=== PATIENT | male | born 1940 | race Caucasian/White ===

== ENCOUNTER 2018-02-15 20:45 | Observation (INO) ==
--- NOTE | 2018-02-15 21:24 | ED ---
HPI General Chief complaint: Chest Pain Stated complaint: cardiac Time Seen by Provider: 02/15/18 21:01 Source: patient Mode of arrival: ambulatory Limitations: no limitations History of Present Illness HPI narrative: 77yo M with PMH of CAD s/p stents x6, double bypass here with c/ o sudden onset nausea and diaphoresis while sitting at the restaurant today. Said that was exactly how his previous heart attacks presented. Said he got up and starting walking and appeared like he was going to fall so son sat him in a chair and he was unresponsive for a few minutes. Had some sob. Denies any fever, chest pain, vomiting, abdominal pain, focal weakness or numbness. Related Data Home Medications Medication Instructions Recorded Confirmed Ca-D3-mag kp-qlsc-qmw-emilia-bor 1,200 mg PO DAILY 02/15/18 02/15/18 [Calcium 600-D3 Plus] albuterol sulfate [ProAir HFA] 2 puff INHALATION Q4-6H PRN 02/15/18 02/15/18 alpha lipoic acid 250 mg PO DAILY 02/15/18 02/15/18 atorvastatin 80 mg PO QPM 02/15/18 02/15/18 calcium carbonate [Calcium 600] 1,200 mg PO DAILY 02/15/18 02/15/18 cholecalciferol (vitamin D3) 5,000 unit PO DAILY 02/15/18 02/15/18 [Vitamin D3] clopidogrel 75 mg PO DAILY 02/15/18 02/15/18 folic acid 0.8 mg PO DAILY 02/15/18 02/15/18 ibandronate 150 mg PO QMONTH 02/15/18 02/15/18 levothyroxine 150 mcg PO DAILY 02/15/18 02/15/18 melatonin 5 mg PO HS 02/15/18 02/15/18 selenium 200 mcg PO DAILY 02/15/18 02/15/18 testosterone 1 packet TRANSDERMAL DAILY 02/15/18 02/15/18 [id number] 200 mg PO DAILY 02/15/18 02/15/18 vitamin Q51-wuzhq acid 3,000 mcg SUBLINGUAL DAILY 02/15/18 02/15/18 Previous Rx's Medication Instructions Recorded aspirin 81 mg PO DAILY #30 tab 02/16/18 Allergies Allergy/AdvReac Type Severity Reaction Status Date / Time No Known Allergies Allergy Uncoded 10/19/16 14:27 Review of Systems ROS: all other systems reviewed are negative [facility] Medical History Medical History COPD (chronic obstructive pulmonary disease) (Acute) Coronary artery disease (Acute) Heart attack (Acute) Hydrocephalus (Acute) Hyperlipidemia (Acute) Hypothyroid (Acute) Surgical History Surgical History History of heart artery stent (Acute) S/P CRIMINAL RESEARCH SPECIALIST shunt (Acute) Status post coronary artery bypass graft (Acute) Status post knee surgery (Acute) Family History Family History Other Coronary artery disease Social History Social History Substance History: No History of Abuse Smoking Status: Former smoker How Often Do You Have a Drink Containing Alcohol: Monthly or less Recent Travel in [facility] within the Last 8 Weeks: No Recent Out of Country Travel within the Last 8 Weeks: No Immunization History Tetanus Immunization: >5 Years Exam Narrative Exam Narrative: GENERAL: 77yo M in mild distress. SKIN: Focused skin assessment warm/dry. HEAD: Atraumatic. Normocephalic. EYES: Pupils equal and round at 3mm. EOMI. ENT: No nasal bleeding or discharge. Mucous membranes pink and moist. NECK: Trachea midline. No JVD. CARDIOVASCULAR: Regular rate and rhythm. No murmur appreciated. RESPIRATORY: No accessory muscle use. Clear to auscultation. Breath sounds equal bilaterally. GASTROINTESTINAL: Abdomen soft, non-tender, nondistended. MUSCULOSKELETAL: No obvious deformities. No clubbing. No cyanosis. No edema. NEUROLOGICAL: Awake and alert. No obvious cranial nerve deficits. Motor grossly within normal limits in all extremities. Sensation intact and equal. Normal speech. PSYCHIATRIC: Appropriate mood and affect; insight and judgment normal. Course Initial Documented Vital Signs Temperature 98.6 F 02/15/18 21:04 Pulse Rate 79 02/15/18 21:04 Respiratory Rate 16 02/15/18 21:04 Blood Pressure 138/75 02/15/18 21:04 Pulse Oximetry 100 02/15/18 21:04 Last Documented Vital Signs Temperature 97.7 F 02/17/18 08:00 Pulse Rate 57 L 02/17/18 08:00 Respiratory Rate 18 02/17/18 08:00 Blood Pressure 132/82 02/17/18 08:00 Pulse Oximetry 99 02/17/18 08:00 Medical Decision Making MDM Narrative Medical decision making narrative: 77yo M here with c/o diaphoresis and nausea today and said this is how his heart attacks are like. Pt also had episode of syncope. Labs reviewed, no leukocytosis. H/H 13.4/37.9. BUN elevated at 19. BUN/creatinine 2 to 1 so likely dehydrated. CXR showed no acute findings. Medical Screen Exam Complete: Yes Emergency Medical Condition: Yes Differential Diagnosis Differential Diagnosis: Syncope vs. hypoglycemia vs. dehydration vs. aortic stenosis vs. ACS Lab Data Result diagrams: 02/15/18 21:26 02/15/18 21:26 Lab Results 02/15/18 02/15/18 02/15/18 Range/Units 21:18 21:26 21:26 WBC 6.6 (4.0-11.0) th/mm3 RBC 4.22 L (4.50-5.90) mil/mm3 Hgb 13.4 (13.0-17.0) gm/dL Hct 37.9 L (39.0-51.0) % MCV 89.7 (80.0-100.0) fL MCH 31.6 (27.0-34.0) pg MCHC 35.2 (32.0-36.0) % RDW 12.9 (11.6-17.2) % Plt Count 200 (150-450) th/mm3 MPV 7.8 (7.0-11.0) fL Neut % (Auto) 63.2 (16.0-70.0) % Lymph % (Auto) 20.3 (9.0-44.0) % [place] % (Auto) 11.9 H (0.0-8.0) % Eos % (Auto) 3.9 (0.0-4.0) % Baso % (Auto) 0.7 (0.0-2.0) % Neut # (Auto) 4.2 (1.8-7.7) th/mm3 Lymph # (Auto) 1.3 (1.0-4.8) th/mm3 [place] # (Auto) 0.8 (0.0-0.9) th/mm3 Eos # (Auto) 0.3 (0.0-0.4) th/mm3 Baso # (Auto) 0.0 (0.0-0.2) th/mm3 WBC Differential . Differential Comment Auto diff final PT 10.6 (9.8-11.6) sec INR 1.0 Ratio APTT 24.3 (23.4-31.7) sec Sodium (136-145) meq/L Potassium (3.5-5.1) meq/L Chloride (98-107) meq/L Carbon Dioxide (21.0-32.0) meq/L Anion Gap (5-15) meq/L BUN (7-18) mg/dL Creatinine (0.60-1.30) mg/dL Estimated GFR (>89) mL/min POC Glucose 86 (68-110) mg/dl Random Glucose (74-106) mg/dL Calcium (8.5-10.1) mg/dL Magnesium (1.5-2.5) mg/dL Total Creatine Kinase (39-308) U/L Troponin I (0.02-0.05) ng/mL 02/15/18 02/16/18 02/16/18 Range/Units 21:26 04:48 10:26 WBC (4.0-11.0) th/mm3 RBC (4.50-5.90) mil/mm3 Hgb (13.0-17.0) gm/dL Hct (39.0-51.0) % MCV (80.0-100.0) fL MCH (27.0-34.0) pg MCHC (32.0-36.0) % RDW (11.6-17.2) % Plt Count (150-450) th/mm3 MPV (7.0-11.0) fL Neut % (Auto) (16.0-70.0) % Lymph % (Auto) (9.0-44.0) % [place] % (Auto) (0.0-8.0) % Eos % (Auto) (0.0-4.0) % Baso % (Auto) (0.0-2.0) % Neut # (Auto) (1.8-7.7) th/mm3 Lymph # (Auto) (1.0-4.8) th/mm3 [place] # (Auto) (0.0-0.9) th/mm3 Eos # (Auto) (0.0-0.4) th/mm3 Baso # (Auto) (0.0-0.2) th/mm3 WBC Differential Differential Comment PT (9.8-11.6) sec INR Ratio APTT (23.4-31.7) sec Sodium 134 L (136-145) meq/L Potassium 3.9 (3.5-5.1) meq/L Chloride 100 (98-107) meq/L Carbon Dioxide 28.3 (21.0-32.0) meq/L Anion Gap 6 (5-15) meq/L BUN 19 H (7-18) mg/dL Creatinine 0.95 (0.60-1.30) mg/dL Estimated GFR 77 L (>89) mL/min POC Glucose (68-110) mg/dl Random Glucose 80 (74-106) mg/dL Calcium 8.8 (8.5-10.1) mg/dL Magnesium 2.0 (1.5-2.5) mg/dL Total Creatine Kinase 90 93 (39-308) U/L Troponin I 0.02 0.03 0.02 (0.02-0.05) ng/mL Imaging Data Radiologist's impression: Chest X-Ray 02/15/18 21:19 CONCLUSION: No acute findings. Stable pleural and parenchymal scarring at the left base compared with 2011. Stable upper right healed rib and clavicle fracture. Carotid Doppler Study 02/16/18 00:00 CONCLUSION: 1. Right Internal Carotid Artery: Findings indicate <50% stenosis. 2. Left Internal Carotid Artery: Findings indicate <50% stenosis. Head CT 02/16/18 00:00 CONCLUSION: 1. No acute intracranial abnormality is identified. 2. A right frontal CRIMINAL RESEARCH SPECIALIST shunt is present and the ventricle size is within normal limits. . Myocardial Perfusion Scan Nuc Med 02/16/18 09:20 CONCLUSION: Probably normal exam ECG Data EKG Prior to Arrival: No Attestation: I personally reviewed and interpreted this ECG as follows: Interpretation: NSR 73bpm. Normal axis. NC interval 159ms. Q wave III. No significant ST elevation or depression. Discharge Plan Discharge Disposition Patient Disposition: ED Admit(ED Internal Use Only) Discharge Condition Condition: Stable Discharge Order Discharge Orders: Discharge Order (Routine); Ordered 02/17/18 Ordered By: Umesh Haney Cardiology Clear for Discharge (Routine); Ordered 02/17/18 Ordered By: Govind Lopez ED Use Only Admit Order (Routine); Ordered 02/15/18 Ordered By: Monserrat Gardner Discharge Details Discharge Comment: dc when cleared by cards Diagnosis: Syncope Physicians Team ED Provider: Gardner,Monserrat Primary Care Provider: UNKNOWN, Attending Provider: Umesh Haney Other Providers: Govind Lopez Status ED Status: Left Department Discharge Information Discharge Date/Time: 02/16/18 05:17
--- NOTE | 2018-02-15 21:41 | XR ---
EXAM DATE: 02/15/2018 9:38 PM EST AGE/SEX: 77 years / Male INDICATIONS: Chest pain CLINICAL DATA: This is the patient's initial encounter. Patient reports that signs and symptoms have been present for 1 day and indicates a pain score of 0/10. MEDICAL/SURGICAL HISTORY: Cardiovascular disease. . cardiac stents COMPARISON: [facility] [place], CHEST PA & LAT, 04/22/2011. . FINDINGS: Right-sided shunt tubing present. Stable mild elevated left hemidiaphragm with left basilar scarring compared with 2012. Remote healed upper right rib and right clavicle fractures. No new infiltrate or effusion. No pneumothorax. CONCLUSION: No acute findings. Stable pleural and parenchymal scarring at the left base compared with 2012. Stabl e upper right healed rib and clavicle fracture. Electronically signed by: eRnny Salinas MD Board Certified Radiologist 02/15/2018 9:40 PM EST
[2018-02-15 21:43] LABS: Baso % (Auto) 0.7 % (0.0-2.0); Eos # (Auto) 0.3 th/mm3 (0.0-0.4); Eos % (Auto) 3.9 % (0.0-4.0); Hematocrit 37.9 % (39.0-51.0); Hemoglobin 13.4 gm/dL (13.0-17.0); Lymph # (Auto) 1.3 th/mm3 (1.0-4.8); Lymph % (Auto) 20.3 % (9.0-44.0); Mean Corpuscular HGB Conc 35.2 % (32.0-36.0); Mean Corpuscular Hemoglobin 31.6 pg (27.0-34.0); Mean Corpuscular Volume 89.7 fL (80.0-100.0); Mean Platelet Volume 7.8 fL (7.0-11.0); Mono # (Auto) 0.8 th/mm3 (0.0-0.9); Mono % (Auto) 11.9 % (0.0-8.0); Neut # (Auto) 4.2 th/mm3 (1.8-7.7); Neut % (Auto) 63.2 % (16.0-70.0); Platelet Count 200 th/mm3 (150-450); Red Blood Count 4.22 mil/mm3 (4.50-5.90); Red Cell Distribution Width 12.9 % (11.6-17.2); White Blood Count 6.6 th/mm3 (4.0-11.0)
[2018-02-15 21:54] LABS: Activated Partial Thrombo Time 24.3 sec (23.4-31.7); Prothrombin Time 10.6 sec (9.8-11.6)
[2018-02-15 22:06] LABS: Calcium 8.8 mg/dL (8.5-10.1); Carbon Dioxide 28.3 meq/L (21.0-32.0); Potassium 3.9 meq/L (3.5-5.1)
[2018-02-15 22:09] LABS: Troponin I 0.02 ng/mL (0.02-0.05)
--- NOTE | 2018-02-16 00:58 | P.HP ---
History of Present Illness Service: [facility] Primary Care Physician: UNKNOWN History of Present Illness: 77-year-old male with a past medical history significant for coronary artery disease status post CABG x2 and stenting x6, hyperlipidemia, COPD, hypothyroidism and hydrocephalus status post SALES SUPPORT ADMINISTRATOR shunt presents to the emergency department for the evaluation of a diaphoretic episode with accompanying syncope. The patient has a history of multiple MIs and reports his symptoms were similar to previous. He states he had just completed dinner when he became diaphoretic with slight nausea around 7 PM. He reports he then got up and was walking when he lost consciousness. He denies any associated dizziness or lightheadedness. Event was witnessed by the patient's . He denies any head trauma. No associated shortness of breath. He reports mild nausea without emesis. No focal neurologic deficits. No fever/chills. Review of Systems All other systems reviewed negative except as stated in HPI [facility] - History History Provided By: Patient - Medical History Medical History: Medical History (Last Updated 02/16/18 @ 00:52 by Malika Beaulieu MD) COPD (chronic obstructive pulmonary disease) Coronary artery disease Heart attack Hydrocephalus Hyperlipidemia Hypothyroid - Surgical History Surgical History: Surgical History (Last Updated 02/16/18 @ 00:53 by Malika Beaulieu MD) History of heart artery stent S/P SALES SUPPORT ADMINISTRATOR shunt Status post coronary artery bypass graft Status post knee surgery - Family History Family History: Family History (Last Updated 02/16/18 @ 00:53 by Malika Beaulieu MD) Other Coronary artery disease - Tobacco History Smoking Status: Former smoker - Alcohol History How Often Do You Have a Drink Containing Alcohol: Monthly or less - Substance Use History Substance History: No History of Abuse - Travel History Recent Travel in the [place] Within the Last 8 Weeks: No Recent Travel Out of the Country Within the Last 8 Weeks: No - Immunization History Tetanus Immunization: >5 Years Medications and Allergies Allergies Allergy/AdvReac Type Severity Reaction Status Date / Time No Known Allergies Allergy Uncoded 10/19/16 14:27 Home Medications Medication Instructions Recorded Confirmed Type Ca-D3-mag ei-wxxw-lna-emilia-bor 1,200 mg PO DAILY 02/15/18 02/15/18 History [Calcium 600-D3 Plus] albuterol sulfate [ProAir HFA] 2 puff INHALATION Q4-6H PRN 02/15/18 02/15/18 History alpha lipoic acid 250 mg PO DAILY 02/15/18 02/15/18 History atorvastatin 80 mg PO QPM 02/15/18 02/15/18 History calcium carbonate [Calcium 600] 1,200 mg PO DAILY 02/15/18 02/15/18 History cholecalciferol (vitamin D3) 5,000 unit PO DAILY 02/15/18 02/15/18 History [Vitamin D3] clopidogrel 75 mg PO DAILY 02/15/18 02/15/18 History folic acid 0.8 mg PO DAILY 02/15/18 02/15/18 History ibandronate 150 mg PO QMONTH 02/15/18 02/15/18 History levothyroxine 150 mcg PO DAILY 02/15/18 02/15/18 History melatonin 5 mg PO HS 02/15/18 02/15/18 History selenium 200 mcg PO DAILY 02/15/18 02/15/18 History tamsulosin 0.4 mg PO DAILY 02/15/18 02/15/18 History testosterone 1 packet TRANSDERMAL DAILY 02/15/18 02/15/18 History lefdezbnp-[id number]-ZW-qesajhdfbqk 200 mg PO DAILY 02/15/18 02/15/18 History vitamin Z34-tmyjy acid 3,000 mcg SUBLINGUAL DAILY 02/15/18 02/15/18 History Exam Vital signs: Vital Signs 02/15/18 21:04 02/15/18 21:29 Temperature 98.6 F Pulse Rate 79 79 Respiratory Rate 16 Blood Pressure 138/75 Pulse Oximetry 100 Intake & Output 02/15/18 02/15/18 02/16/18 06:59 18:59 06:59 Weight 67.132 kg Narrative: Gen.: No acute distress Head: Normocephalic. Atraumatic. EENT: Pupils equal round and reactive to light. Nose without drainage. Airway intact. Throat without injection. Cardiovascular: Regular rate and rhythm. No murmurs, rubs or gallops. Respiratory: Lungs clear to auscultation bilaterally. No wheezes or rhonchi. Abdomen: Soft, nontender, nondistended. No peritoneal signs. Musculoskeletal: No gross deformities. No edema. Skin: No obvious rashes or erythema. Neuro: Sensory and motor grossly intact. Cranial nerves II through XII grossly intact. Results - Labs CBC & Chem 7: 02/15/18 21:26 02/15/18 21:26 Labs: Laboratory Results - last 24 hr 02/15/18 02/15/18 02/15/18 21:18 21:26 21:26 WBC 6.6 RBC 4.22 L Hgb 13.4 Hct 37.9 L MCV 89.7 MCH 31.6 MCHC 35.2 RDW 12.9 Plt Count 200 MPV 7.8 Neut % (Auto) 63.2 Lymph % (Auto) 20.3 [place] % (Auto) 11.9 H Eos % (Auto) 3.9 Baso % (Auto) 0.7 Neut # (Auto) 4.2 Lymph # (Auto) 1.3 [place] # (Auto) 0.8 Eos # (Auto) 0.3 Baso # (Auto) 0.0 WBC Differential . Differential Comment Auto diff final PT 10.6 INR 1.0 APTT 24.3 Sodium Potassium Chloride Carbon Dioxide Anion Gap BUN Creatinine Estimated GFR POC Glucose 86 Random Glucose Calcium Magnesium Troponin I 02/15/18 21:26 WBC RBC Hgb Hct MCV MCH MCHC RDW Plt Count MPV Neut % (Auto) Lymph % (Auto) [place] % (Auto) Eos % (Auto) Baso % (Auto) Neut # (Auto) Lymph # (Auto) [place] # (Auto) Eos # (Auto) Baso # (Auto) WBC Differential Differential Comment PT INR APTT Sodium 134 L Potassium 3.9 Chloride 100 Carbon Dioxide 28.3 Anion Gap 6 BUN 19 H Creatinine 0.95 Estimated GFR 77 L POC Glucose Random Glucose 80 Calcium 8.8 Magnesium 2.0 Troponin I 0.02 - Imaging Impressions Chest X-Ray 02/15/18 21:19 CONCLUSION: No acute findings. Stable pleural and parenchymal scarring at the left base compared with 2012. Stable upper right healed rib and clavicle fracture. Caprini VTE Risk Assessment Caprini VTE Risk Assessment: Moderate/High Risk (score >= 2) Caprini Risk Assessment Model: Point Value = 1 Point Value = 2 Point Value = 3 Point Value = 5 Age 41-60 Minor surgery BMI > 25 kg/m2 Swollen legs Varicose veins or History of unexplained or recurrent spontaneous Oral contraceptives or hormone replacement Sepsis (< 1 month) Serious lung disease, including pneumonia (< 1 month) Abnormal pulmonary function Acute myocardial infarction Congestive heart failure (< 1 month) History of inflammatory bowel disease Medical patient at bed rest Age 61-74 Arthroscopic surgery Major open surgery (> 45 min) Laparoscopic surgery (> 45 min) Malignancy Confined to bed (> 72 hours) Immobilizing plaster cast Central venous access Age >= 75 History of VTE Family history of VTE Factor V Leiden Prothrombin [id number] Lupus anticoagulant Anticardiolipin antibodies Elevated serum homocysteine Heparin-induced thrombocytopenia Other congenital or acquired thrombophilia Stroke (< 1 month) Elective arthroplasty Hip, pelvis, or leg fracture Acute spinal cord injury (< 1 month) Prophylaxis Regimen: Total Risk Factor Score Risk Level Prophylaxis Regimen 0-1 Low Early ambulation 2 Moderate Order ONE of the following: *Sequential Compression Device (SCD) *Heparin 5000 units SQ BID 3-4 Higher Order ONE of the following medications: *Heparin 5000 units SQ TID *Enoxaparin/Lovenox 40 mg SQ daily (WT < 150 kg, CrCl > 30 mL/min) *Enoxaparin/Lovenox 30 mg SQ daily (WT < 150 kg, CrCl > 10-29 mL/min) *Enoxaparin/Lovenox 30 mg SQ BID (WT < 150 kg, CrCl > 30 mL/min) AND/OR *Sequential Compression Device (SCD) 5 or more Highest Order ONE of the following medications: *Heparin 5000 units SQ TID (Preferred with Epidurals) *Enoxaparin/Lovenox 40 mg SQ daily (WT < 150 kg, CrCl > 30 mL/min) *Enoxaparin/Lovenox 30 mg SQ daily (WT < 150 kg, CrCl > 10-29 mL/min) *Enoxaparin/Lovenox 30 mg SQ BID (WT < 150 kg, CrCl > 30 mL/min) AND *Sequential Compression Device (SCD) Assessment and Plan - Plan Assessment/plan: 1. Diaphoresis/chest pain/coronary artery disease Patient reports symptoms similar to previous [place] Now resolved Initial troponin negative EKG shows normal sinus rhythm with a pulse of [address] segment elevation or depression, personally reviewed Patient's hand tufter, Dr. Lopez consulted, appreciate assistance ACS rule out pending; serial troponins/EKGs 2. Syncope CT head pending Echo, carotid ultrasound pending Orthostatic vital signs pending 3. Hypothyroidism/hyperlipidemia Continue home medication 4. NPH Status post SALES SUPPORT ADMINISTRATOR shunting Head CT as above FEN N.p.o. NS at 100 cc/hour Electrolytes: Monitor and replete as needed Heparin
[2018-02-16] MEDS ORDERED: Sodium Chloride 0.9% 2 ML Flush PRN IV.FLUSH (01:00)
--- NOTE | 2018-02-16 02:00 | CT ---
EXAM DATE: 02/16/2018 1:37 AM EST AGE/SEX: 77 years / Male INDICATIONS: Syncope. CLINICAL DATA: This is the patient's initial encounter. Patient reports that signs and symptoms have been present for 1 day and indicates a pain score of 0/10. MEDICAL/SURGICAL HISTORY: Cardiovascular disease. Hydrocephalus. CABG. Coronary artery stent. PILOT BOAT CAPTAIN Shunt. RADIATION DOSE: 56.35 CTDI (mGy) COMPARISON: [facility] [place], CT BRAIN W/O CONTRAST, 06/30/2015. . TECHNIQUE: CT of the head without contrast. Using automated exposure control and adjustment of the mA and/or kV according to patient size, radiation dose was kept as low as reasonably achievable to ob tain optimal diagnostic quality images. DICOM format image data is available electronically for revi ew and comparison. FINDINGS: Cerebrum: There is a right frontal AP shunt in place with distal tip in the midline. Ventricles are slightly decreased in size from the prior examination and not dilated given the mild degree of cerebr al atrophy present. There is mild periventricular white matter low-attenuation. No midline shift, mas s lesion, hemorrhage or acute infarction. No extraaxial fluid collections are seen. Posterior Fossa: The cerebellum and brainstem demonstrate no acute abnormality. The 4th ventricle is midline. The cerebellopontine angle is within normal limits. Extracranial: The visualized sinuses are clear. Skull: The calvaria is intact. No skull fracture. CONCLUSION: 1. No acute intracranial abnormality is identified. 2. A right frontal PILOT BOAT CAPTAIN shunt is present and the ventricle size is within normal limits. . Electronically signed by: Lalit Goldman MD Board Certified Radiologist 02/16/2018 1:58 AM EST
[2018-02-16] MEDS: Sod Chloride 0.9% Inj 1,000 ML IV.CONT SCH ×3 (04:33→21:24)
[2018-02-16] MEDS: Melatonin 5 MG Tablet PO SCH ×2 (04:34→21:24)
[2018-02-16] MEDS: Heparin - SQ 10,000 UNITS/ML Vial SQ SCH ×3 (05:21→21:24)
[2018-02-16] MEDS: Levothyroxine 150 MCG Tablet PO SCH (05:22)
[2018-02-16 07:22] LABS: Troponin I 0.03 ng/mL (0.02-0.05)
--- NOTE | 2018-02-16 08:08 | ECG ---
Date Performed: 02/15/2018 Time Performed: 21:04:39 PTAGE: 77 years EKG: Sinus rhythm POSSIBLE INFERIOR MYOCARDIAL INFARCTION BORDERLINE ECG No significant change from prior electrocardi ogram. PREVIOUS TRACING : 04/21/2011 20.02 DOCTOR: Mahesh Rahman Interpretating Date/Time 02/16/2018 08:06:04
[2018-02-16] MEDS ORDERED: Regadenoson Inj 0.4 MG/5 ML Syringe IV.PUSH ONE (09:20)
--- NOTE | 2018-02-16 09:40 | P.PNIM ---
Subjective Interval history: Follow-up syncope. Patient had syncope during dinner. Only new medicine is Flomax which he took in the morning. Reported low BP per EMS but did not receive hydration. Negative orthostatics. Physical Exam Vital signs: Vital Signs 02/15/18 21:04 02/15/18 21:29 02/16/18 00:49 Temperature 98.6 F Pulse Rate 79 79 79 Respiratory Rate 16 17 Blood Pressure 138/75 111/65 Pulse Oximetry 100 97 02/16/18 03:25 Temperature Pulse Rate 77 Respiratory Rate 16 Blood Pressure 128/71 Pulse Oximetry 97 Intake & Output 02/15/18 02/16/18 02/16/18 18:59 06:59 18:59 Intake Total 0 / 0 Output Total 450 / 450 Balance -450 / -450 Weight 68.5 kg Intake: Oral 0 / 0 Output: Urine 450 / 450 Other: Date of Last Bowel Movement 02/15/18 Narrative: GENERAL: Well-developed and well-nourished in no distress SKIN: Warm and dry. CARDIOVASCULAR: Regular rate and rhythm. RESPIRATORY: No accessory muscle use. Clear to auscultation. Breath sounds equal bilaterally. GASTROINTESTINAL: Abdomen soft, non-tender, nondistended. MUSCULOSKELETAL: Extremities without clubbing, cyanosis, or edema. No obvious deformities. NEUROLOGICAL: Awake and alert. No obvious cranial nerve deficits. Motor grossly within normal limits. Five out of 5 muscle strength in the arms and legs. Normal speech. PSYCHIATRIC: Appropriate mood and affect; insight and judgment normal. Results Labs CBC & Chem 7: 02/15/18 21:26 02/15/18 21:26 Imaging Imaging: Impressions Chest X-Ray 02/15/18 21:19 CONCLUSION: No acute findings. Stable pleural and parenchymal scarring at the left base compared with 2012. Stable upper right healed rib and clavicle fracture. Head CT 02/16/18 00:00 CONCLUSION: 1. No acute intracranial abnormality is identified. 2. A right frontal POWERPLANT OPERATOR shunt is present and the ventricle size is within normal limits. . Assessment and Plan Plan 1. Diaphoresis/chest pain/coronary artery disease Patient reports symptoms similar to previous [place] Now resolved Initial troponin negative EKG shows normal sinus rhythm with a pulse of [address] segment elevation or depression, personally reviewed Patient's global engineering manager, Dr. Lopez consulted, appreciate assistance Patient ruling out for OK for Lexiscan today Aspirin, Plavix and Lipitor 2. Syncope, sounds like vasovagal agree with cardiology's assessment CT head without acute finding Echo unremarkable pending carotid ultrasound Orthostatic vital signs negative 3. Hypothyroidism/hyperlipidemia Continue home medication 4. NPH Status post POWERPLANT OPERATOR shunting Head CT as above FEN N.p.o. NS at 100 cc/hour Electrolytes: Monitor and replete as needed Heparin subcu for DVT prophylaxis If negative workup discharge home possibly tomorrow
--- NOTE | 2018-02-16 10:12 | US ---
EXAM DATE: 02/16/2018 10:05 AM EST AGE/SEX: 77 years / Male INDICATIONS: Syncope. CLINICAL DATA: This is the patient's initial encounter. Patient reports that signs and symptoms have been present for 1 day and indicates a pain score of 0/10. MEDICAL/SURGICAL HISTORY: Chronic obstructive pulmonary disease. Myocardial infarction. Hypot hyroidism. CAD. Hydrocephalus. Hyperlipidemia. Coronary artery stent. CABG. MAINSPRING FABRICATION SUPERVISOR Shunt. Knee surgery . COMPARISON: No prior exams available for comparison. VELOCITY PARAMETERS: ICA/CCA Ratio: Right 0.7 , Left 0.9 ICA: Right 89 cm/sec, Left 94 cm/sec CCA: Right 136 cm/sec, Left 102 cm/sec ECA: Right 94 cm/sec, Left 78 cm/sec Vertebral: Right 56 cm/sec antegrade, Left 18 cm/sec antegrade FINDINGS: Right Carotid: Moderate arteriosclerotic plaque is visualized.The waveforms are within normal limits . Left Carotid: Mild arteriosclerotic plaque is visualized. The waveforms are within normal limits. Other: None. CONCLUSION: 1. Right Internal Carotid Artery: Findings indicate <50% stenosis. 2. Left Internal Carotid Artery: Findings indicate <50% stenosis. Electronically signed by: Festus Whitney MD Board Certified Radiologist 02/16/2018 10:11 AM EST
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
[2018-02-16 11:23] LABS: Troponin I 0.02 ng/mL (0.02-0.05)
--- NOTE | 2018-02-16 12:00 | ECHRPT ---
Indication: SYNCOPE CONCLUSIONS Normal left ventricular size. Wall thickness is normal. The left ventricular systolic function is low normal with an estimated ejection fraction in the rang e of 50- 55%. [id number] mitral valve regurgitation. Aortic valve sclerosis is present. There is trace tricuspid valve regurgitation. BP: / HR: Rhythm: Sinus MEASUREMENTS (Male / Female) Normal Values Technical Quality:Fair 2D ECHO LV Diastolic Diameter PLAX 4.6 cm 4.2 - 5.9 / 3.9 - 5.3 cm LV Systolic Diameter PLAX 3.5 cm IVS Diastolic Thickness 0.7 cm 0.6 - 1.0 / 0.6 - 0.9 cm LVPW Diastolic Thickness 0.7 cm 0.6 - 1.0 / 0.6 - 0.9 cm LV Relative Wall Thickness 0.3 RV Internal Dim ED PLAX 1.5 cm LVOT Diameter 2.0 cm Aortic Root Diameter 3.0 cm M-MODE AV Cusp Separation MM 1.9 cm DOPPLER AV Peak Velocity 91.0 cm/s AV Peak Gradient 3.3 mmHg AV Mean Gradient 2.0 mmHg AV Velocity Time Integral 20.7 cm LVOT Peak Velocity 75.9 cm/s LVOT Peak Gradient 2.3 mmHg LVOT Velocity Time Integral 18.1 cm AV Area Cont Eq vti 2.7 cm AV Area Cont Eq pk 2.6 cm Mitral E Point Velocity 61.2 cm/s Mitral A Point Velocity 82.4 cm/s Mitral E to A Ratio 0.7 LV E' Lateral Velocity 9.8 cm/s Mitral E to LV E' Lateral Ratio 6.3 LV E' Septal Velocity 7.0 cm/s Mitral E to LV E' Septal Ratio 8.7 TR Peak Velocity 225.0 cm/s TR Peak Gradient 20.3 mmHg Right Atrial Pressure 10.0 mmHg Pulmonary Artery Systolic Pressu 30.3 mmHg Right Ventricular Systolic Press 30.3 mmHg PV Peak Velocity 60.2 cm/s PV Peak Gradient 1.4 mmHg FINDINGS LEFT VENTRICLE Normal left ventricular size. Wall thickness is normal. The left ventricular systolic function is low normal with an estimated ejection fraction in the rang e of 50- 55%. RIGHT VENTRICLE Normal right ventricular size and systolic function. LEFT ATRIUM The left atrial size is normal. RIGHT ATRIUM The right atrial size is normal. ATRIAL SEPTUM No atrial level shunt is demonstrated by color flow Doppler interrogation. AORTA The aortic root and proximal ascending aorta are normal in size on limited imaging. MITRAL VALVE [id number] mitral valve regurgitation. AORTIC VALVE Aortic valve sclerosis is present. TRICUSPID VALVE There is trace tricuspid valve regurgitation. PULMONARY VALVE No pulmonary valve regurgitation or stenosis. VESSELS The inferior vena cava is normal in size. PERICARDIUM No pericardial effusion. Dmitriy Lawton MD, FACC (Electronically Signed) Final Date:16 February 2018 11:59
--- NOTE | 2018-02-16 14:25 | ECG ---
Date Performed: 02/16/2018 Time Performed: 04:15:36 PTAGE: 77 years EKG: Sinus rhythm Normal ECG No significant change from prior electrocardiogram. PREVIOUS TRACING : 02/15/2018 21.04 DOCTOR: Mahesh Rahman Interpretating Date/Time 02/16/2018 14:24:29
--- NOTE | 2018-02-16 14:47 | NM ---
EXAM DATE: 02/16/2018 2:42 PM EST AGE/SEX: 77 years / Male INDICATIONS:Angina. Coronary artery disease CLINICAL DATA: This is the patient's initial encounter. Patient reports that signs and symptoms have been present for 1 day and indicates a pain score of 5/10. MEDICAL/SURGICAL HISTORY: Chronic obstructive pulmonary disease. Hypothyroidism. Myocardial i nfarction. CABG. Coronary artery stent. SUPERVISORY TRAINING SPECIALIST shunt. COMPARISON: No prior exams available for comparison. DOSE: 8.5 mCi Tc 99m Myoview at rest 26.4 mCi [id number] at stress 0.4 mg Lexiscan STRESS SYMPTOMS: None. EJECTION FRACTION: 67 % TECHNIQUE: The patient underwent pharmacologic stress with infusion of prescribed dose. Continuous ECG tracing was monitored during stress. Gated SPECT imaging was performed after stress and conventi onal SPECT imaging was performed at rest. The examination was performed on a SPECT/CT scanner, both attenuation and non-corrected datasets were reviewed. FINDINGS: Distribution: The maximum perfused segment at stress is in the anterolateral wall. Perfusion Study: Small focus of mildly diminished perfusion involving the lateral apical region wit hout evidence of redistribution. Gated Study: There are intact wall motion and wall thickening without hypokinetic or dyskinetic segm ents. The ejection fraction is calculated at 67%. RISK CATEGORY: Low (<1% Annual Mortality Rate) CONCLUSION: Probably normal exam Electronically signed by: Lalit Barrios MD Board Certified Radiologist 02/16/2018 2:45 PM EST
[2018-02-16] MEDS: Sodium Chloride 0.9% 2 ML Flush BID IV.FLUSH SCH ×2 (18:03→21:26)
[2018-02-17 00:15] VITALS: RESP 18
[2018-02-17] MEDS: Heparin - SQ 10,000 UNITS/ML Vial SQ SCH (05:05)
[2018-02-17] MEDS: Levothyroxine 150 MCG Tablet PO SCH (05:05)
[2018-02-17] MEDS: Sod Chloride 0.9% Inj 1,000 ML IV.CONT SCH ×2 (05:06→06:12)
[2018-02-17] MEDS: Sodium Chloride 0.9% 2 ML Flush BID IV.FLUSH SCH (08:42)
[2018-02-17 10:02] VITALS: BP 132/82; TEMP 97.7; O2SAT 99
[2018-02-17 10:04] VITALS: PULSE 57
--- NOTE | 2018-02-17 10:25 | P.PNIM ---
Subjective Interval history: Follow-up syncope. He is doing well no recurrence. Stress test negative. Physical Exam Vital signs: Vital Signs 02/16/18 12:00 02/16/18 16:00 02/16/18 18:30 Temperature 97.9 F 97.8 F Pulse Rate 71 92 H Respiratory Rate 18 18 Blood Pressure 128/71 154/77 H Pulse Oximetry 99 99 02/16/18 20:00 02/16/18 21:00 02/16/18 22:00 Temperature 98.2 F Pulse Rate 71 65 64 Respiratory Rate 20 Blood Pressure 129/82 Pulse Oximetry 98 02/16/18 23:00 02/17/18 00:00 02/17/18 01:00 Temperature 98.3 F Pulse Rate 66 60 62 Respiratory Rate 18 Blood Pressure 139/74 Pulse Oximetry 97 02/17/18 02:00 02/17/18 03:00 02/17/18 04:00 Temperature 98.1 F Pulse Rate 61 63 65 Respiratory Rate 18 Blood Pressure 141/89 H Pulse Oximetry 96 02/17/18 08:00 Temperature 97.7 F Pulse Rate 57 L Respiratory Rate 18 Blood Pressure 132/82 Pulse Oximetry 99 Intake & Output 02/16/18 02/17/18 02/17/18 18:59 06:59 18:59 Intake Total 1480 / 1480 2480 / 2480 Output Total 800 / 800 Balance 1480 / 1480 1680 / 1680 Weight 65.2 kg Intake: IV 1000 / 1000 1999 NS Inj 1,000 ML @ 100 mls/hr IV 1000 / 1000 1999 .CONT .Q10H RENETTA Rx#:[id number] Oral 480 / 480 480 / 480 Output: Urine 800 / 800 Other: # Voids 3 Date of Last Bowel Movement 02/15/18 # Bowel Movements 0 Narrative: GENERAL: Well-developed and well-nourished in no distress SKIN: Warm and dry. CARDIOVASCULAR: Regular rate and rhythm. RESPIRATORY: No accessory muscle use. Clear to auscultation. Breath sounds equal bilaterally. GASTROINTESTINAL: Abdomen soft, non-tender, nondistended. MUSCULOSKELETAL: Extremities without clubbing, cyanosis, or edema. No obvious deformities. NEUROLOGICAL: Awake and alert. No obvious cranial nerve deficits. Motor grossly within normal limits. Five out of 5 muscle strength in the arms and legs. Normal speech. Results Labs CBC & Chem 7: 02/15/18 21:26 02/15/18 21:26 Imaging Imaging: Impressions Myocardial Perfusion Scan Nuc Med 02/16/18 09:20 CONCLUSION: Probably normal exam Procedures Procedures: none Assessment and Plan Plan 1. Diaphoresis/chest pain/coronary artery disease Patient reports symptoms similar to previous [facility] Now resolved Ruled out for [facility] EKG shows normal sinus rhythm with a pulse of [address] segment elevation or depression, personally reviewed Patient's quality assurance monitor body, Dr. Lopez consulted, appreciate assistance Negative Lexiscan Continue aspirin, Plavix and Lipitor 2. Syncope, sounds like vasovagal agree with cardiology's assessment CT head without acute finding Echo and carotid ultrasound Orthostatic vital signs negative 3. Hypothyroidism/hyperlipidemia Continue home medication 4. NPH Status post GRADE FOREMAN shunting Head CT as above Discharge patient to home Condition on discharge: Improved Regular Diet as tolerated Ad Radha activity Rx written: None Follow-up with primary care physician and cardiac
== END 2018-02-17 11:17 | disposition home or self-care (01) ==
LOC: NEPC 20:45 → NEDA 20:45 → HCIS 02-16 03:06
PROVIDERS: ADMIT Internal Medicine; ATTEND Internal Medicine
DX: Z98.2 Presence of cerebrospinal fluid drainage device; Z79.82 Long term (current) use of aspirin; Z86.73 Personal history of transient ischemic attack (TIA), and cerebral infarction without residual deficits; E78.5 Hyperlipidemia, unspecified; R07.9 Chest pain, unspecified; Z79.890 Hormone replacement therapy; I25.10 Atherosclerotic heart disease of native coronary artery without angina pectoris; G91.9 Hydrocephalus, unspecified; Z95.1 Presence of aortocoronary bypass graft; J44.9 Chronic obstructive pulmonary disease, unspecified; Z79.02 Long term (current) use of antithrombotics/antiplatelets; Z82.49 Family history of ischemic heart disease and other diseases of the circulatory system; R94.31 Abnormal electrocardiogram [ECG] [EKG]; I10 Essential (primary) hypertension; Z87.891 Personal history of nicotine dependence; Z82.3 Family history of stroke; I25.2 Old myocardial infarction; R55 Syncope and collapse; E03.9 Hypothyroidism, unspecified; Z95.5 Presence of coronary angioplasty implant and graft
CPT/HCPCS: 70450; 71010; 71045; 78452; 80048; 82550; 82948; 82962; 83735; 84484; 85025; 85610; 85730; 93005; 93017; 93306; 93880; 99285; A9502; G0378; J1644; J2785; J7030